=== PATIENT | female | born 1980 | race Caucasian/White ===

== ENCOUNTER 2019-12-24 19:11 | Emergency (ER) | payer OTHER ==
[~2019-12-24] VITALS: Ht 142.2 cm; Wt 45.8 kg
[2019-12-24 19:31] VITALS: Ht 142.2 cm; Wt 45.8 kg
[2019-12-24 20:05] VITALS: BP 131/63
== END 2019-12-24 20:05 | disposition home or self-care (01) ==
LOC: ED 19:11
DX: K08.89 Other specified disorders of teeth and supporting structures (principal); K04.7 Periapical abscess without sinus; J45.909 Unspecified asthma, uncomplicated; Z88.0 Allergy status to penicillin; Z88.1 Allergy status to other antibiotic agents

== ENCOUNTER 2020-01-21 10:41 | Emergency (ER) | payer OTHER, SELFPAY ==
[~2020-01-21] VITALS: Ht 142.2 cm; Wt 44.5 kg
[2020-01-21 10:44] VITALS: Ht 142.2 cm; Wt 44.5 kg
[2020-01-21 13:29] LABS: BASOPHIL % 1.1 % (0-2); PLATELET COUNT 272 x10^3mcL (130-400)
[2020-01-21 13:41] LABS: RED CELL DISTRIBUTION WIDTH 17.2 % (11.5-14.5)
[2020-01-21 15:52] LABS: ALKALINE PHOSPHATASE 44 U/L (46-116); ALT/SGPT 13 U/L (14-59); AST/SGOT 14 U/L (15-37); BILIRUBIN TOTAL 0.2 mg/dL (0.20-1.00); CALCIUM 7.6 mg/dL (8.5-10.1); CARBON DIOXIDE 20.9 mmol/L (21-32); CHLORIDE SERUM 109 mmol/L (98-107); CREATININE SERUM 0.8 mg/dL (0.6-1.0); GFR1 > 60 mL/min; GLUCOSE SERUM 79 mg/dL (74-106); LIPASE 278 IU/L (73-393); POTASSIUM SERUM 3.5 mmol/L (3.5-5.1); SODIUM SERUM 138 mmol/L (136-145)
[2020-01-21 16:00] LABS: TOTAL PROTEIN, SERUM 5.6 g/dL (6.4-8.2)
[2020-01-21 16:03] VITALS: BP 113/62
== END 2020-01-21 16:03 | disposition home or self-care (01) ==
LOC: ED 10:41
PROVIDERS: Emergency Medicine
DX: K52.9 Noninfective gastroenteritis and colitis, unspecified (principal); E86.0 Dehydration; J45.909 Unspecified asthma, uncomplicated; Z20.828 Contact with and (suspected) exposure to other viral communicable diseases; Z88.0 Allergy status to penicillin; Z88.1 Allergy status to other antibiotic agents
CPT/HCPCS: J2405; J7030; U0003